=== PATIENT | female | born 1975 | race Hispanic/Latino ===

== ENCOUNTER 2018-01-23 16:04 | Emergency (ER) | payer OTHER ==
--- OUTSIDE RECORDS SUMMARY | 2018-01-23 16:06 | XMS REPORT | Clinical Summary ---
:1975 Author Organization [facility] Address [address] [place] [address] Care Team Providers Name Role Phone Asked, No Pcp Primary Care Provider Unavailable Allergies Active Allergy Reactions Severity Noted Date Comments Doxycycline GI Intolerance 09/03/2016 Current Medications No known medications Active Problems Not on file Social History Tobacco Use Types Packs/Day Years Used Date Never Smoker Alcohol Use Drinks/Week oz/Week Comments No Sex Assigned at Date Recorded Not on file Last Filed Vital Signs Not on file Plan of Treatment Not on file Results Not on fileafter 01/22/2017 Insurance Payer Benefit Plan / Group Subscriber ID Type Phone Address [employer] [facility] [employer] Home[address] [phone] [phone]
--- OUTSIDE RECORDS SUMMARY | 2018-01-23 16:07 | XMS REPORT | Continuity of Care Document ---
:1975 Author Organization Interface Problems Problem Status Onset Classification Date Comments Source Date Reported TRIGEMINAL Active [facility] NEURALGIA [address] [place] [address] G50.0 - Active OPI TRIGEMINAL [address] [place] NEURALGIA Obesity Active Problem 01/02/2018 [facility] Trigeminal Active Problem 01/02/2018 [facility] neuralgia Neuro,[facility] Medications Medication Details Route Status Patient Ordering Order Source Instructions Provider Date Promethazine
12.5 mg=1 Active 11/27[facility] Hydrochloride tab, PO, Q4H, 2017 Medical 12.5 MG Oral PRN Nausea & Center Tablet Vomiting, X 10 [Phenergan] day, # 60 tab, 0 Refill(s) Acetaminophen 325
1-2 tab, Active 11/27[facility] MG / Hydrocodone PO, Q4-6H, PRN 2017 Medical Bitartrate 10 MG Pain, X 10 day, Center Oral Tablet # 60 tab, 0 [[place] 10/325] Refill(s), given to patient Cyclobenzaprine
10 mg, PO, Active 11/27[facility] hydrochloride 10 TID, PRN Muscle 2017 Medical MG Oral Tablet Spasm, X 10 day, Center [Flexeril] # 30 tab, 0 Refill(s) Docusate Sodium
100 mg, PO, Active 11/27[facility] 100 MG Oral BID, PRN 2017 Medical Capsule Constipation, # Center 20 cap, 0 Refill(s) Reglan
10 mg, 2 No Longer [facility] mL, Route: IVP, Active 2016 Medical Drug form: INJ, Center Q6H, Dosing Weight 84.091, kg, PRN Nausea & Vomiting, Start date: 11/26/16 10:11:00 CDT, Duration: 30 day, Stop date: 12/26/16 10:10:00 CDT
Notes: (Same as: Reglan) pantoprazole
40 mg, 1 No Longer [facility] tab, Route: PO, Active 2017 Medical Drug form: Center ECTAB, Daily, Dosing Weight 84.091, kg, Start date: 11/26/16 9:00:00 CDT, Duration: 30 day, Stop date: 12/25/16 9:00:00 CDT
Notes: Tablet should not be chewed or crushed. (Same as: Protonix) Dilaudid
1 mg, 0.5 Inactive [facility] mL, Route: IVP, 2016 Medical Drug form: INJ, Center ONCE, Dosing Weight 84.091, kg, Priority: STAT, Start date: 11/26/16 6:28:00 CDT, Stop date: 11/26/16 6:28:00 CDT
Notes: Same as: Dilaudid Saline Flush 0.9%
10 ml, No Longer [facility] Route: IVP, Drug Active 2016 Medical Form: INJ, Center Dosing Weight 84.091, kg, Q12H, Start date: 11/25/16 21:00:00 CDT, Duration: 30 day, Stop date: 12/25/16 9:00:00 CDT
Notes: (Same as: BD Posiflush) Docusate Sodium
100 mg, 1 No Longer [facility] 100 MG Oral cap, Route: PO, Active 2016 Medical Capsule Drug form: CAP, Center Q12H, Dosing Weight 84.091, kg, Start date: 11/25/16 21:00:00 CDT, Duration: 30 day, Stop date: 12/25/16 9:00:00 CDT
Notes: (Same as: Colace) (Do Not Crush) sennosides, ALF
8.6 mg, 1 No Longer [facility] tab, Route: PO, Active 2017 Medical Drug Form: TAB, Center Dosing Weight 84.091, kg, Q12H, Start date: 11/25/16 21:00:00 CDT, Duration: 30 day, Stop date: 12/25/16 9:00:00 CDT
Notes: (Same as: Regis) Senna 8.6 mg oral
1 tab, Inactive [place] tablet Route: PO, Drug 2016 Medical Form: TAB, Center Dosing Weight 84.091, kg, Q12H, Start date: 11/25/16 21:00:00 CDT, Duration: 30 day, Stop date: 12/25/16 9:00:00 CDT Docusate
100 mg, Inactive [facility] Route: PO, Drug 2016 Medical form: CAP, Q12H, Center Dosing Weight 84.091, kg, Start date: 11/25/16 21:00:00 CDT, Duration: 30 day, Stop date: 12/25/16 9:00:00 CDT Cefazolin
2 gm, No Longer [facility] Route: IVPB, Active 2016 Medical ABXQ8H, Dosing Center Weight 84.091, kg, Start date: 11/25/16 16:00:00 CDT, Duration: 1 day, Stop date: 11/26/16 8:00:00 CDT
Notes: (Same As: Gregorio Pricefzol) MEDICATION WASTE Product Size: 1000 mg Product Wasted: ___ mg Vancomycin
1,000 mg, Inactive [facility] Route: IVPB, 2016 Medical Drug form: INJ, Center Q8H, Dosing Weight 84.091, kg, Start date: 11/25/16 16:00:00 CDT, Duration: 24 hr, Stop date: 11/26/16 8:00:00 CDT
Notes: TIME CRITICAL MEDICATION (Same As: Vancocin) Infusion rate < 1000 mg: infuse over 1 hour 1001 - 1500 mg: infuse over 1.5 hours 1501 - 2000 mg: infuse over 2 hours > 2001 mg: infuse over 2.5 hours MEDICATION WASTE Product Size: 1000 mg Product Wasted: ___ mg Promethazine
12.5 mg, No Longer [facility] 0.5 mL, Route: Active 2016 Medical IVPB, Drug form: Center INJ, Q6H, Dosing Weight 84.091, kg, PRN Nausea & Vomiting, Start date: 11/25/16 15:40:00 CDT, Duration: 30 day, Stop date: 12/25/16 15:39:00 CDT
Notes : Do not give IV push. (Same as: Phenergan) Morphine
2 mg, 1 mL, No Longer [place] Route: IVP, Drug Active 2016 Medical form: INJ, Q4H, Center Dosing Weight 84.091, kg, PRN Pain Score 7-10, Start date: 11/25/16 15:40:00 CDT, Duration: 30 day, Stop date: 12/25/16 15:39:00 CDT
Notes: (Same as:MORPhine Sulfate) Acetaminophen 325
1 tab, No Longer [place] MG / Hydrocodone Route: PO, Drug Active 2016 Medical Bitartrate 10 MG Form: TAB, Center Oral Tablet Dosing Weight 84.091, kg, Q4H, PRN Pain Score 4-6, Start date: 11/25/16 15:40:00 CDT, Duration: 30 day, Stop date: 12/25/16 15:39:00 CDT
Notes: Do not exceed 4gm/day of acetaminophen. (Same as: [place] 325/10) Acetaminophen 325
1 tab, No Longer [facility] MG / Hydrocodone Route: PO, Drug Active 2016 Medical Bitartrate 5 MG Form: TAB, Center Oral Tablet Dosing Weight 84.091, kg, Q4H, PRN Pain Score 1-3, Start date: 11/25/16 15:40:00 CDT, Duration: 30 day, Stop date: 12/25/16 15:39:00 CDT
Notes: (Same as: [place] 325/5) Do not exceed 4gm/day of acetaminophen. Carbamazepine
800 mg, 4 No Longer [place] cap, Route: PO, Active 2016 Medical Drug form: Center ERCAP, BID, Dosing Weight 84.091, kg, Priority: NOW, Start date: 11/25/16 15:36:00 CDT, Stop date: 12/25/16 9:00:00 CDT
Notes: Do not open, chew or crush. (Same As: Carbatrol) Dexamethasone
4 mg, 1 mL, Inactive [facility] Route: IVP, Drug 2016 Medical form: INJ, Q6H, Center Dosing Weight 84.091, kg, Start date: 11/25/16 12:00:00 CDT, Duration: 1 day, Stop date: 11/26/16 6:00:00 CDT
Notes: Concentration: 4mg/ml cefepime
1 gm, Inactive [facility] Route: IVPB, 2016 Medical Drug form: INJ, Center ABXQ8H, Dosing Weight 84.091, kg, (CrCl >/=50 ml/min), Start date: 11/25/16 12:00:00 CDT, Duration: 1 day, Stop date: 11/26/16 4:00:00 CDT
Notes: (Same As: Maxipime) MEDICATION WASTE Product Size: 1000 mg Product Wasted: ___ mg Flexeril
10 mg, 1 No Longer [facility] tab, Route: PO, Active 2017 Medical Drug form: TAB, Center TID, Dosing Weight 84.091, kg, PRN Spasm, Start date: 11/25/16 11:51:00 CDT, Duration: 30 day, Stop date: 12/25/16 11:50:00 CDT
Notes: (Same As: Flexeril) Acetaminophen 325
1 tab, Inactive [facility] MG / Hydrocodone Route: PO, Drug 2017 Medical Bitartrate 10 MG Form: TAB, Center Oral Tablet Dosing Weight [[place] 10/325] 84.091, kg, Q4H, PRN Pain Score 1-3, Start date: 11/25/16 11:50:00 CDT, Duration: 30 day, Stop date: 12/25/16 11:49:00 CDT
Notes: Do not exceed 4gm/day of acetaminophen. (Same as: [place] 325/10) neostigmine
Route: IV, Inactive [facility] (ANES) Drug form: INJ, 2017 Medical ONCE, Stop date: Center 11/25/16 11:48:00 CDT glycopyrrolate
Route: IV, Inactive [facility] (ANES) Drug form: INJ, 2016 Medical ONCE, Stop date: Center 11/25/16 11:48:00 CDT Insulin regular
6 unit, No Longer [facility] 0.06 mL, Route: Active 2016 Medical SUB-Q, Drug Center form: SOLN, Sliding Scale, Dosing Weight 84.091, kg, PRN Blood Glucose Results, Start date: 11/25/16 11:48:00 CDT, Duration: 30 day, Stop date: 12/25/16 11:47:00 CDT
Notes: (Same as: Humulin R) Roll in palms of hands gently; Do not shake vigorously. "single patient use only" (Restricted to patients requiring a dose > 60 units) WASTE: F/P - Black; E - [employer] Trash Bin Stable for 28 days at room temperature Expires in days from Da te Saline Flush 0.9%
10 ml, No Longer [facility] Route: IVP, Drug Active 2016 Medical Form: INJ, Center Dosing Weight 84.091, kg, PRN, PRN Line Flush, Start date: 11/25/16 11:48:00 CDT, Duration: 30 day, Stop date: 12/25/16 11:47:00 CDT
Notes: (Same as: BD Posiflush) Morphine
2 mg, 1 mL, Inactive [facility] Route: IVP, Drug 2016 Medical form: INJ, Q1H, Center Dosing Weight 84.091, kg, PRN Pain Score 7-10, Start date: 11/25/16 11:48:00 CDT, Duration: 30 day, Stop date: 12/25/16 11:47:00 CDT
Notes: (Same as:MORPhine Sulfate) Ondansetron
4 mg, 2 mL, No Longer [facility] Route: IVP, Drug Active 2016 Medical form: INJ, Q8H, Center Dosing Weight 84.091, kg, PRN Nausea & Vomiting, Start date: 11/25/16 11:48:00 CDT, Duration: 30 day, Stop date: 12/25/16 11:47:00 CDT
Notes : (Same as: Zofran) MEDICATION WASTE Product Size: 4 mg Product Wasted: ___ mg Sodium Chloride
1,000 mL, No Longer [facility] 0.154 MEQ/ML Rate: 100 ml/hr, Active 2016 Medical Injectable Infuse over: 10 Center Solution hr, Route: IV, Dosing Weight 84.091 kg, Total Volume: 1,000, Start date: 11/25/16 11:48:00 CDT, Stop date: 12/25/16 11:47:00 CDT ondansetron
Route: IV, Inactive 11/[facility] (ANES) Drug form: INJ, 2016 Medical ONCE, Stop date: [place] 11/25/16 11:33:00 CDT acetaminophen
Route: IV, Inactive [facility] (ANES) Drug form: INJ, 2016 Medical ONCE, Stop date: [place] 11/25/16 10:48:00 CDT SUFentanil (ANES)
Route: IV, Inactive [facility] Drug form: INJ, 2016 Medical ONCE, Stop date: [place] 11/25/16 10:38:00 CDT Naloxone
0.4 mg, 1 Inactive [facility] mL, Route: IVP, 2016 Medical Drug form: INJ, Center Q2MIN, Dosing Weight 84.091, kg, PRN Narcotic Reversal, Start date: 11/25/16 10:21:00 CDT, Duration: 8 doses or times, Stop date: 11/26/16 0:00:00 CDT
Notes: Same as Narcan Hydromorphone
0.5 mg, Inactive [facility] 0.25 mL, Route: 2017 Medical IVP, Drug form: [place] INJ, Q5Min, Dosing Weight 84.091, kg, PRN Pain Score 7-10, Start date: 11/25/16 10:21:00 CDT, Duration: 4 doses or times, Stop date: 11/26/16 0:00:00 CDT
Notes: Same as: Dilaudid Flumazenil
0.2 mg, 2 Inactive [facility] mL, Route: IVP, 2016 Medical Drug form: INJ, Center PRN, Dosing Weight 84.091, kg, PRN Benzodiazepine Reversal, Initial dose, Start date: 11/25/16 10:21:00 CDT, Duration: 30 day, Stop date: 12/25/16 10:20:00 CDT
Notes: (Same as: Romazicon) Ondansetron
4 mg, 2 mL, Inactive [facility] Route: IVP, Drug 2016 Medical form: INJ, ONCE, Center Dosing Weight 84.091, kg, PRN Nausea & Vomiting, Start date: 11/25/16 10:21:00 CDT
Notes: (Same as: Annabel) MEDICATION WASTE Product Size: 4 mg Product Wasted: ___ mg Oxycodone
5 mg, 1 Inactive [facility] tab, Route: PO, 2016 Medical Drug form: TAB, Center Q4H, Dosing Weight 84.091, kg, PRN Pain Score 4-6, Start date: 11/25/16 10:21:00 CDT, Duration: 30 day, Stop date: 12/25/16 10:20:00 CDT
Notes: (Same as: Roxicodone) Labetalol
10 mg, 2 Inactive [facility] mL, Route: IVP, 2016 Medical Drug form: INJ, Center Q5Min, Dosing Weight 84.091, kg, PRN Elevated BP, Start date: 11/25/16 10:21:00 CDT, Duration: 5 doses or times, Stop date: 11/26/16 0:00:00 CDT dexamethasone
Route: IV, Inactive [facility] (ANES) Drug form: INJ, 2017 Medical ONCE, Stop date: Center 11/25/16 8:58:00 CDT rocuronium (ANES)
Route: IV, Inactive [facility] Drug form: INJ, 2016 Medical ONCE, Stop date: [place] 11/25/16 8:58:00 CDT fentaNYL (ANES)
Route: IV, Inactive [facility] Drug form: INJ, 2016 Medical ONCE, Stop date: [place] 11/25/16 8:58:00 CDT ceFAZolin (ANES)
Route: IV, Inactive [facility] Drug form: INJ, 2016 Medical ONCE, Stop date: [place] 11/25/16 8:58:00 CDT phenylephrine
Route: IV, Inactive [facility] (ANES) Drug form: INJ, 2016 Medical ONCE, Stop date: [place] 11/25/16 8:58:00 CDT lidocaine (ANES)
Route: IV, Inactive [facility] Drug form: INJ, 2016 Medical ONCE, Stop date: [place] 11/25/16 8:58:00 CDT propofol (ANES)
Route: IV, Inactive [facility] Drug form: INJ, 2016 Medical ONCE, Stop date: [place] 11/25/16 8:58:00 CDT sodium chloride
Route: IV, Inactive [facility] 0.9% 1000 ml INJ Total Volume: 2017 Medical (ANES) 1,000, Start Center date: 11/25/16 8:18:00 CDT, Stop date: 11/25/16 9:18:00 CDT propofol (ANES)
Route: IV, Inactive [facility] (ANES) Drug form: INJ, 2016 Medical Start date: [place] 11/25/16 8:02:00 CDT, Stop date: 11/25/16 9:02:00 CDT SUFentanil (ANES)
Route: IV, Inactive [facility] (ANES) Drug form: INJ, 2016 Medical Start date: [place] 11/25/16 8:02:00 CDT, Stop date: 11/25/16 9:02:00 CDT midazolam (ANES)
Route: IV, Inactive [facility] Drug form: SOLN, 2016 Medical ONCE, Stop date: [place] 11/25/16 7:58:00 CDT LR 1000 mL INJ
Route: IV, Inactive [facility] (ANES) Total Volume: 2017 Medical 1,000, Start Center date: 11/25/16 7:21:00 CDT, Stop date: 11/25/16 8:21:00 CDT ceFAZolin
2 gm, 100 Inactive [place] mL, Route: IVPB, 2016 Medical Drug form: INJ, Center PRE OP, Start date: 11/25/16 0:00:00 CDT, Duration: 1 day, Stop date: 11/25/16 23:59:00 CDT
Notes: Same as: Ancef Allergies, Adverse Reactions, Alerts Substance Category Reaction Severity Reaction Status Date Comments Source type Reported NKDA Assertion Drug Active [facility] Immunizations Immunization Date Given Site Status Last Updated Comments Source Results Order Name Results Value Reference Date Interpretation Comments Source Range Neck soft Neck soft EXAM: CT NECK WITH CONTRAST 04/01 - [facility] tissue w tissue - [place] contrast CT contrast CT This report was dictated by a Amusement Equipment Operator/Fellow. I have personally reviewed the images as well as the Resident's interpretation and agree with the findings. 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 TECHNIQUE: Axial CT images of the neck were obtained after intravenous contrast. Reformatted images in the sagittal and coronal plane were included. IV contrast: 100 mL of Omnipaque 300.. DLP: 665 mGy-cm. FINDINGS: The nasopharynx, oropharynx and oral cavity are normal. The larynx, hypopharynx and thyroid gland are normal. The parotid glands are symmetric with no masslike enhancement. There are 2 intraparotid lym ph nodes on the right side of the clinical significance. Imaged portions of the paranasal sinuses and mastoid air cells are clear. Imaged portions of the brain and orbits are unremarkable. No cervical lymphadenopathy by imaging criteria. Osseous structures are normal. The lung apices are clear. IMPRESSION: Unremarkable parotid glands. Small right intraparotid lymph nodes of no clinical significance. CHEM PANEL eGFR 116 11/26 Result Comment: The eGFR is calculated using the CKD-EPI formula. In most young, healthy individuals the eGFR will be >90 mL/ min/1.73m2. The eGFR declines with age. An eGFR of 60-89 may be normal in [facility] mL/min/1.7 some populations, particularly the elderly, for whom the CKD-EPI formula has not been extensively validated. Use of the eGFR is not recommended in the following populations: [address] Individuals with unstable creatinine concentrations, including patients and those with serious co-morbid conditions. Patients with extremes in muscle mass or diet. The data above are obtained from the National Kidney Disease Education Program (NKDEP) which additionally recommends that when the eGFR is used in patients with extremes of body mass index for purposes of drug dosing, the eGFR should be multiplied by the estimated BMI. CHEM PANEL Glucose Lvl 89 mg/dL 70 - 99 11/[address] CHEM PANEL Chloride Lvl 109 meq/L 95 - 109 11/[address] CHEM PANEL Potassium 3.5 meq/L 3.5 - 5.1 11/26 [facility] [address] [place] [address] CHEM PANEL Sodium Lvl 142 meq/L 135 - 145 11/[address] CHEM PANEL Creatinine 0.56 mg/dL 0.50 - 11/26 [facility] Lvl 1.40 /2016 [facility] CHEM PANEL BUN 6 mg/dL 7 - 22 11/[address] CHEM PANEL Calcium Lvl 7.7 mg/dL 8.5 - 10.5 11/[address] CHEM PANEL CO2 24 meq/L 24 - 32 11/[address] CHEM PANEL AGAP 12.5 meq/L 10.0 - 11/26 [facility] 20.0 [facility] HEMATOLOGY Monocytes # 0.7 K/CMM 0.0 - 0.8 11/[address] HEMATOLOGY Lymphocytes 2.0 K/CMM 1.0 - 5.5 11/26 [facility] # /2016 [facility] HEMATOLOGY Lymphocytes 22.4 % 20.0 - 05/ [place] 40.0 /2016 [facility] HEMATOLOGY Basophils 0.2 % 0.0 - 1.0 [facility] HEMATOLOGY Monocytes 8.3 % 2.0 - 12.0 11/26 [facility] HEMATOLOGY Segs-Bands # 6.1 K/CMM 1.5 - 8.1 11/26 [facility] HEMATOLOGY Segs 69.1 % 45.0 - 11/26 [place] 75.0 /2016 [facility] HEMATOLOGY Platelet 232 K/CMM 133 - 450 11/26 [facility] HEMATOLOGY MPV 8.2 fL 7.4 - 10.4 11/26 [facility] HEMATOLOGY MCHC 33.6 g/dL 32.0 - 11/26 [place] 36.0 [facility] HEMATOLOGY RDW 13.4 % 11.5 - 05 14.5 [facility] HEMATOLOGY Hct 34.7 % 36.0 - 11/26 [place] 48.0 [facility] HEMATOLOGY MCV 93.2 fL 80.0 - 11/26 [facility] 98.0 [facility] HEMATOLOGY MCH 31.3 pg 27.0 - 11/26 [place] 31.0 [facility] HEMATOLOGY RBC 3.73 M/CMM 4.20 - 11/26 [place] 5.40 /2016 [facility] HEMATOLOGY Hgb 11.7 g/dL 12.0 - 05 [place] 16.0 [facility] HEMATOLOGY WBC 8.8 K/CMM 3.7 - 10.4 11/26 [facility] HEMATOLOGY PTT 27.0 s 22.9 - 11/26 [place] 35.8 /2016 [facility] HEMATOLOGY PT 14.4 s 12.0 - 11/26 [place] 14.7 [facility] HEMATOLOGY INR 1.10 0.85 - 11/26 [place] 1.17 [facility] ELECTROLYTE AGAP 11.3 meq/L 10.0 - 11/24 [facility] S 20.0 [facility] ELECTROLYTE eGFR 114 11/24 Result Comment: The eGFR is calculated using the CKD-EPI formula. In most young, healthy individuals the eGFR will be > 90 mL/min/1.73m2. The eGFR declines with age. An eGFR of 60-89 may be normal in [facility] mL/min/1.7 some populations, particularly the elderly, for whom the CKD-EPI formula has not been extensively validated. Use of the eGFR is not recommended in the following populations: [address] Individuals with unstable creatinine concentrations, including patients and those with serious co-morbid conditions. Patients with extremes in muscle mass or diet. The data above are obtained from the National Kidney Disease Education Program (NKDEP) which additionally recommends that when the eGFR is used in patients with extremes of body mass index for purposes of drug dosing, the eGFR should be multiplied by the estimated BMI. ELECTROLYTE Potassium 4.3 meq/L 3.5 - 5.1 11/24 [facility] ELECTROLYTE Chloride Lvl 105 meq/L 95 - 109 11/[address] ELECTROLYTE CO2 31 meq/L 24 - 32 11/[address] ELECTROLYTE Calcium Lvl 8.4 mg/dL 8.5 - 10.5 11/[address] ELECTROLYTE Creatinine 0.59 mg/dL 0.50 - 11/24 [facility] Lvl 1.40 [facility] ELECTROLYTE Sodium Lvl 143 meq/L 135 - 145 11/[address] ELECTROLYTE Glucose Lvl 82 mg/dL 70 - 99 11/24 [facility] [address] [place] [address] ELECTROLYTE BUN 10 mg/dL 7 - 22 11/[address] HEMATOLOGY Segs 57.6 % 45.0 - 05 [place] 75.0 [facility] HEMATOLOGY Lymphocytes 33.6 % 20.0 - 05 [place] 40.0 [facility] HEMATOLOGY Eosinophils 0.3 % 0.0 - 4.0 11/[address] HEMATOLOGY Monocytes 8.2 % 2.0 - 12.0 11/[address] [place] [address] HEMATOLOGY Segs-Bands # 3.0 K/CMM 1.5 - 8.1 11/[address] HEMATOLOGY Basophils 0.3 % 0.0 - 1.[address] HEMATOLOGY Lymphocytes 1.7 K/CMM 1.0 - 5.5 11/24 [facility] # [facility] HEMATOLOGY Monocytes # 0.4 K/CMM 0.0 - 0.8 11/[address] HEMATOLOGY INR 1.02 0.85 - 05 [place] 1.17 [facility] HEMATOLOGY PTT 29.2 s 22.9 - 05 [facility] [place] 35.8 [facility] HEMATOLOGY PT 13.6 s 12.0 - 11/24 14.7 [facility] HEMATOLOGY RDW 13.5 % 11.5 - 11/24 14.5 [facility] HEMATOLOGY Platelet 239 K/CMM 133 - 450 11/24 [facility] HEMATOLOGY MPV 8.1 fL 7.4 - 10.4 11/24 [facility] HEMATOLOGY MCV 93.9 fL 80.0 - 11/24 98.0 [facility] HEMATOLOGY MCH 31.6 pg 27.0 - 11/24 31.0 [facility] HEMATOLOGY Hct 40.9 % 36.0 - 11/24 [place] 48.0 [facility] HEMATOLOGY Hgb 13.7 g/dL 12.0 - 11/24 16.0 [facility] HEMATOLOGY RBC 4.35 M/CMM 4.20 - 11/24 5.40 [facility] HEMATOLOGY WBC 5.2 K/CMM 3.7 - 10.4 11/24 [facility] HEMATOLOGY MCHC 33.6 g/dL 32.0 - 11/24 36.0 [facility] Brain w/wo Brain w/wo EXAM: MRI BRAIN WITH AND WITHOUT CONTRAST 09/28 - [facility] contrast contrast MRI /2016 [facility] MRI DATE: 09/28/2016 4:23 PM HARNESS TIER Read by: Kris Alatorre MD Dictated Date/time: 09/28/16 22:35 Electronically Signed by: Kris Alatorre MD 09/28/16 22:51 FINAL REPORT INDICATION: G50.0 Trigeminal neuralgia. COMPARISON: None. TECHNIQUE: Multiplanar, multisequence MRI imaging of the brain was acquired with and without intravenous contrast according to the trigeminal neuralgia protocol. A total of 18 mL Omniscan was administered intravenously. FINDINGS: No acute intracranial hemorrhage, midline shift, or mass effect is identified. The ventricles and sulci are within normal limits, without evidence for hydrocephalus. No evidence for restricted diffusion is present to suggest an acute infarct. There is no abnormal gradient susceptibility artifact. A retention cyst is noted within the peripheral aspect of the right sphenoid sinus on series 1501 image 3. The major intracranial flow voids are maintained. An enhancing nodule within the superficial as pect of the right parotid gland is nonspecific, measuring approximately 8 mm on series 1601 image 10. The right trigeminal nerve appears to be decreased in caliber when compared to the left. No abnormal enhancement along the expected course of the trigeminal nerve is identified. The muscles of masticati on are symmetric. Meckel's cave is unremarkable bilaterally. The cavernous sinuses are within normal limits. No abnormal vascular displacement or compression of the trigeminal nerve is visualized. Foramen ovale is unremarkable. IMPRESSION: 1. Right trigeminal nerve appears to be decreased in caliber when compared to the left. No abnormal enhancement, masses, or vascular displacement is visualized. 2. Nonspecific enhancing nodule within the superficial right parotid gland measures approximately 8 mm. 3. No acute abnormality within the brain. SL: [id number] Vital Signs Vital Sign Value Date Comments Source Systolic (mm Hg) 100 11/27/2016 [facility] Diastolic (mm Hg) 65 11/27/2016 [facility] Respitory Rate 18 11/27/2016 [facility] Temperature Oral (F) 97.8 F 11/27/2016 [facility] Heart Rate 74 11/27/2016 [facility] Heart Rate 82 11/27/2016 [facility] Systolic (mm Hg) 110 11/27/2016 [facility] Diastolic (mm Hg) 73 11/27/2016 [facility] Heart Rate 69 11/27/2016 [facility] Systolic (mm Hg) 96 11/27/2016 [facility] Diastolic (mm Hg) 59 11/27/2016 [facility] Respitory Rate 16 11/27/2016 [facility] Temperature Oral (F) 97.6 F 11/27/2016 [facility] Respitory Rate 16 11/27/2016 [facility] Temperature Oral (F) 99.0 F 11/27/2016 [facility] BMI Calculated 33.91 11/25/2016 [facility] Weight 84.091 11/25/2016 [facility] Height 157.48 cm 11/25/2016 [facility] Systolic (mm Hg) 102 11/24/2016 [facility] Diastolic (mm Hg) 67 11/24/2016 [facility] Weight 84.091 11/24/2016 [facility] [place] Height 157.48 cm 11/24/2016 [facility] [place] BMI Calculated 33.91 11/24/2016 [facility] Encounters Location Location Encounter Encounter Reason Attending ADM DC Status Source Details Type Number For Provider Date Date Visit [facility] Outpt Diag [id number] Drik 09/28 09/29 [facility] [id number] SHAYAN ALATORRE 10/27 [facility] Outpatient [id number] SHAYAN ALATORRE 11/24 [facility] [place] Outpatient [id number] SHAYAN ALATORRE 11/25 [facility] Inpatient [id number] Shayan Alatorre 11/25 11/27 [facility] /2016 [facility] Outpatient [id number] SHAYAN ALATORRE 12/08 [facility] [place] Outpatient [id number] SHAYAN ALATORRE 02/09 [facility] [place] [facility] Outpt Diag [id number] Martín 04/01 04/02 [facility] [place] [facility] Phone [id number] 12/29 12/31 [facility] /2017 [facility] [id number] MARGARITA 02/18 [facility] [place] Procedures Procedure Code Date Perfomer Comments Source Caesarean section [id number] [facility] Cholecystectomy [id number] [facility] Caesarean section [id number] [facility] [place] Cholecystectomy [id number] [facility] Caesarean section [id number] [facility] Cholecystectomy [id number] [facility]
--- OUTSIDE RECORDS SUMMARY | 2018-01-23 16:07 | XMS REPORT | Summary of Care ---
:1975 Author Organization [facility] Neurosurgery [facility] Address [address] [place] [address], [address] [place] [address]- Encounter [facility] Encntr_alias(FIN) [id number] Date(s): 12/29/17 - 12/30/17 [facility] Neurosurgery [facility] [address] [facility] [address], [address] [place] [address] [phone] Vital Signs No data available for this section Problem List Condition Effective Dates Status Health Status Informant Obesity(Confirmed) Active Obesity(Confirmed) Active Trigeminal neuralgia(Confirmed) Active Allergies, Adverse Reactions, Alerts Substance Reaction Severity Status NKDA Active Medications No data available for this section Results No data available for this section Immunizations No data available for this section Procedures Procedure Date Related Diagnosis Body Site Status Caesarean section Completed Cholecystectomy Completed Social History Social History Type Response Alcohol Never Smoking Status Never smoker; Previous treatment: None; Ready to change: No; Concerns about tobacco use in household: No; Exposure to Tobacco Smoke None; Cigarette Smoking Last 365 Days No; Reg Smoking Cessation Counseling No entered on: 02/09/17 Assessment and Plan No data available for this section
--- OUTSIDE RECORDS SUMMARY | 2018-01-23 16:07 | XMS REPORT | Summary of Care ---
:1975 Author Organization [facility] [place] Address [address] [place], [place] [address]- Encounter HQ Yashntr_barbara(FIN) [id number] Date(s): 04/01/17 - 04/01/17 [facility] [place] [address] [place] [address]- [phone] Discharge Disposition: Home or Self Care Attending Physician: Martín Miller MD Vital Signs Most recent to oldest [Reference Range]: 1 Height 157.48 cm (11/24/16 2:57 PM) Blood Pressure [90-140/60-90 mmHg] 102/67 mmHg (11/24/16 2:57 PM) Weight 84.091 kg (11/24/16 2:57 PM) Body Mass Index 33.91 m2 (11/24/16 2:57 PM) Problem List Condition Effective Dates Status Health Status Informant Obesity(Confirmed) Active Obesity(Confirmed) Active Trigeminal neuralgia(Confirmed) Active Allergies, Adverse Reactions, Alerts Substance Reaction Severity Status NKDA Active Medications No data available for this section Results No data available for this section Immunizations No data available for this section Procedures Procedure Date Related Diagnosis Body Site Caesarean section Cholecystectomy Social History Social History Type Response Alcohol Never Smoking Status Never smoker; Previous treatment: None; Ready to change: No; Concerns about tobacco use in household: No; Exposure to Tobacco Smoke None; Cigarette Smoking Last 365 Days No; Reg Smoking Cessation Counseling No Assessment and Plan No data available for this section
--- OUTSIDE RECORDS SUMMARY | 2018-01-23 16:07 | XMS REPORT | Summary of Care ---
:1975 Author Organization [facility] Outpatient [facility] [place] Address [address] [place], [place] [address]- Encounter HQ Encntr_alias(FIN) [id number] Date(s): 09/28/16 - 09/28/16 [facility] Outpatient Imaging [address], [facility] [address] [place] [address]- [phone] Discharge Disposition: Home or Self Care Attending Physician: Dirk Becerril MD Vital Signs No data available for this section Problem List No data available for this section Allergies, Adverse Reactions, Alerts No data available for this section Medications No data available for this section Results No data available for this section Immunizations No data available for this section Procedures No data available for this section Social History No data available for this section Assessment and Plan No data available for this section
--- OUTSIDE RECORDS SUMMARY | 2018-01-23 16:07 | XMS REPORT | Summary of Care ---
:1975 Author Organization [facility] Address [address] [place] [id number]- Encounter HQ Encntr_barbara(FIN) [id number] Date(s): 11/25/16 - 11/27/[address] Professional Services provided by [facility] [place] [address]- Discharge Disposition: Home or Self Care Attending Physician: Matty lAatorre MD Admitting Physician: Matty Alatorre MD Referring Physician: Matty Alatorre MD Vital Signs Most recent to oldest [Reference 1 2 3 Range]: Height 157.48 cm (11/25/16 5:50 AM) Temperature Oral [96.4-99.1 DegF] 97.8 DegF 97.6 DegF 99.0 DegF (11/27/16 7:29 AM) (11/27/16 4:35 AM) (11/26/16 11:35 PM) Blood Pressure [90-140/60-90 100/65 mmHg 110/73 mmHg 96/59 mmHg mmHg] (11/27/16 7:29 AM) (11/27/16 6:17 AM) (11/27/16 4:35 AM) Respiratory Rate [14-20 BRMIN] 18 BRMIN 16 BRMIN 16 BRMIN (11/27/16 7:29 AM) (11/27/16 4:35 AM) (11/26/16 11:35 PM) Peripheral Pulse Rate [60-100 74 bpm 82 bpm 69 bpm bpm] (11/27/16 7:29 AM) (11/27/16 6:17 AM) (11/27/16 4:35 AM) Weight 84.091 kg (11/25/16 5:50 AM) Body Mass Index 33.91 m2 (11/25/16 5:50 AM) Problem List Condition Effective Dates Status Health Status Informant Obesity(Confirmed) Active Obesity(Confirmed) Active Trigeminal neuralgia(Confirmed) Active Allergies, Adverse Reactions, Alerts Substance Reaction Severity Status NKDA Active Medications acetaminophen (ANES) Route: IV, Drug form: INJ, ONCE, Stop date: 11/25/16 10:48:00 CDT Start Date: 11/25/16 Stop Date: 11/25/16 Status: Completedacetaminophen-hydrocodone 325 mg-10 mg oral tablet 1 tab, Route: PO, Drug Form: TAB, Dosing Weight 84.091, kg, Q4H, PRN Pain Score 4-6, Start date: 11/25/16 15:40:00 CDT, Duration: 30 day, Stop date: 12/25/16 15 :39:00 CDT Notes: Do not exceed 4gm/day of acetaminophen. (Same as: [place] 325/10) Start Date: 11/25/16 Stop Date: 11/27/16 Status: Discontinuedacetaminophen-hydrocodone 325 mg-10 mg oral tablet 2 tab, Route: PO, Drug Form: TAB, Dosing Weight 84.091, kg, Q4H, PRN Pain Score 7-10, Start date: 11/25/16 15:40:00 CDT, Duration: 30 day, Stop date: 12/25/16 15:39:00 CDT Notes: Do not exceed 4gm/day of acetaminophen. (Same as: [place] 325/10) Start Date: 11/25/16 Stop Date: 11/27/16 Status: Discontinuedacetaminophen-hydrocodone 325 mg-5 mg oral tablet 1 tab, Route: PO, Drug Form: TAB, Dosing Weight 84.091, kg, Q4H, PRN Pain Score 1-3, Start date: 11/25/16 15:40:00 CDT, Duration: 30 day, Stop date: 12/25/16 15 :39:00 CDT Notes: (Same as: [place] 325/5) Do not exceed 4gm/day of acetaminophen. Start Date: 11/25/16 Stop Date: 11/27/16 Status: DiscontinuedANES flumazenil 0.2 mg, 2 mL, Route: IVP, Drug form: INJ, PRN, Dosing Weight 84.091, kg, PRN Benzodiazepine Reversal, Initial dose, Start date: 11/25/16 10:21:00 CDT, Duration: 30 day, Stop date: 12/25/16 10:20:00 CDT Notes: (Same as: Romazicon) Start Date: 11/25/16 Stop Date: 11/25/16 Status: DiscontinuedANES HYDROmorphone 0.5 mg, 0.25 mL, Route: IVP, Drug form: INJ, Q5Min, Dosing Weight 84.091, kg, PRN Pain Score 7-10, Start date: 11/25/16 10:21:00 CDT, Duration: 4 doses or times, Stop date: 11/26/16 0:00:00 CDT Notes: Same as: Dilaudid Start Date: 11/25/16 Stop Date: 11/25/16 Status: DiscontinuedANES labetalol 10 mg, 2 mL, Route: IVP, Drug form: INJ, Q5Min, Dosing Weight 84.091, kg, PRN Elevated BP, Start date: 11/25/16 10:21:00 CDT, Duration: 5 doses or times, Stop date: 11/26/16 0:00:00 CDT Start Date: 11/25/16 Stop Date: 11/25/16 Status: DiscontinuedANES naloxone 0.4 mg, 1 mL, Route: IVP, Drug form: INJ, Q2MIN, Dosing Weight 84.091, kg, PRN Narcotic Reversal, Start date: 11/25/16 10:21:00 CDT, Duration: 8 doses or times , Stop date: 11/26/16 0:00:00 CDT Notes: Same as Narcan Start Date: 11/25/16 Stop Date: 11/25/16 Status: DiscontinuedANES ondansetron 4 mg, 2 mL, Route: IVP, Drug form: INJ, ONCE, Dosing Weight 84.091, kg, PRN Nausea & Vomiting, Start date: 11/25/16 10:21:00 CDT Notes: (Same as: Annabel) MEDICATION WASTE Product Size: 4 mgProduct Wasted: ___ mg Start Date: 11/25/16 Stop Date: 11/25/16 Status: CompletedANES oxyCODONE 5 mg, 1 tab, Route: PO, Drug form: TAB, Q4H, Dosing Weight 84.091, kg, PRN Pain Score 4-6, Start date: 11/25/16 10:21:00 CDT, Duration: 30 day, Stop date: 12/25 10:20:00 CDT Notes: (Same as: Roxicodone) Start Date: 11/25/16 Stop Date: 11/25/16 Status: DiscontinuedcarBAMazepine extended release 800 mg, 4 cap, Route: PO, Drug form: ERCAP, BID, Dosing Weight 84.091, kg, Priority: NOW, Start date: 11/25/16 15:36:00 CDT, Stop date: 12/25/16 9:00:00 CDT Notes: Do not open, chew or crush. (Same As: Carbatrol) Start Date: 11/25/16 Stop Date: 11/27/16 Status: DiscontinuedceFAZolin 2 gm, 100 mL, Route: IVPB, Drug form: INJ, PRE OP, Start date: 11/25/16 0:00:00 CDT, Duration: 1 day, Stop date: 11/25/16 23:59:00 CDT Notes: Same as: Ancef Start Date: 11/25/16 Stop Date: 11/25/16 Status: CompletedceFAZolin (ANES) Route: IV, Drug form: INJ, ONCE, Stop date: 11/25/16 8:58:00 CDT Start Date: 11/25/16 Stop Date: 11/25/16 Status: CompletedceFAZolin + sodium chloride 0.9% INJ 100 mL 2 gm, Route: IVPB, ABXQ8H, Dosing Weight 84.091, kg, Start date: 11/25/16 16:00: 00 CDT, Duration: 1 day, Stop date: 11/26/16 8:00:00 CDT Notes: (Same As: Jose Enrique Price) MEDICATION WASTE Product Size: 1000 mgProduct Wasted: ___ mg Start Date: 11/25/16 Stop Date: 11/26/16 Status: Completedcefepime 1 gm, Route: IVPB, Drug form: INJ, ABXQ8H, Dosing Weight 84.091, kg, (CrCl >/= 50 ml/min), Start date: 11/25/16 12:00:00 CDT, Duration: 1 day, Stop date: 11/26 4:00:00 CDT Notes: (Same As: Aguilarime) MEDICATION WASTE Product Size: 1000 mgProduct Wasted: ___ mg Start Date: 11/25/16 Stop Date: 11/25/16 Status: Discontinueddexamethasone 4 mg, 1 mL, Route: IVP, Drug form: INJ, Q6H, Dosing Weight 84.091, kg, Start date: 11/25/16 12:00:00CDT, Duration: 1 day, Stop date: 11/26/16 6:00:00 CDT Notes: Concentration: 4mg/ml Start Date: 11/25/16 Stop Date: 11/25/16 Status: Discontinueddexamethasone (ANES) Route: IV, Drug form: INJ, ONCE, Stop date: 11/25/16 8:58:00 CDT Start Date: 11/25/16 Stop Date: 11/25/16 Status: CompletedDilaudid 1 mg, 0.5 mL, Route: IVP, Drug form: INJ, ONCE, Dosing Weight 84.091, kg, Priority: STAT, Start date: 11/26/16 6:28:00 CDT, Stop date: 11/26/16 6:28:00 CDT Notes: Same as: Dilaudid Start Date: 11/26/16 Stop Date: 11/26/16 Status: Completeddocusate 100 mg, Route: PO, Drug form: CAP, Q12H, Dosing Weight 84.091, kg, Start date: 11/25/16 21:00:00 CDT, Duration: 30 day, Stop date: 12/25/16 9:00:00 CDT Start Date: 11/25/16 Stop Date: 11/25/16 Status: Deleteddocusate sodium 100 mg oral capsule 100 mg, 1 cap, Route: PO, Drug form: CAP, Q12H, Dosing Weight 84.091, kg, Start date: 11/25/16 21:00:00 CDT, Duration: 30 day, Stop date: 12/25/16 9:00:00 CDT Notes: (Same as: Colace) (Do Not Crush) Start Date: 11/25/16 Stop Date: 11/27/16 Status: Discontinueddocusate sodium 100 mg oral capsule 100 mg, PO, BID, PRN Constipation, # 20 cap, 0 Refill(s) Start Date: 11/27/16 Status: OrderedfentaNYL (ANES) Route: IV, Drug form: INJ, ONCE, Stop date: 11/25/16 8:58:00 CDT Start Date: 11/25/16 Stop Date: 11/25/16 Status: CompletedFlexeril 10 mg, 1 tab, Route: PO, Drug form: TAB, TID, Dosing Weight 84.091, kg, PRN Spasm, Start date: 11/25/16 11:51:00 CDT, Duration: 30 day, Stop date: 12/25/16 11:50:00 CDT Notes: (Same As: Flexeril) Start Date: 11/25/16 Stop Date: 11/27/16 Status: DiscontinuedFlexeril 10 mg oral tablet 10 mg, PO, TID, PRN Muscle Spasm, X 10 day, # 30 tab, 0 Refill(s) Start Date: 11/27/16 Stop Date: 12/07/16 Status: Orderedglycopyrrolate (ANES) Route: IV, Drug form: INJ, ONCE, Stop date: 11/25/16 11:48:00 CDT Start Date: 11/25/16 Stop Date: 11/25/16 Status: CompletedInsulin regular 6 unit, 0.06 mL, Route: SUB-Q, Drug form: SOLN, Sliding Scale, Dosing Weight 84.091, kg, PRN Blood Glucose Results, Start date: 11/25/16 11:48:00 CDT, Duration: 30 day, Stop date: 12/25/16 11:47:00 CDT Notes: (Same as: Humulin R) Roll in palms of hands gently; Do not shake vigorously. "single patientuse only"(Restricted to patients requiring a dose > 60 units)WASTE: F/P - Black; E - Municipal Trash Bin Stable for 28 days at room temperatureExpires in days from Date Start Date: 11/25/16 Stop Date: 11/27/16 Status: DiscontinuedInsulin regular 4 unit, 0.04 mL, Route: SUB-Q, Drug form: SOLN, Sliding Scale, Dosing Weight 84.091, kg, PRN Blood Glucose Results, Start date: 11/25/16 11:48:00 CDT, Duration: 30 day, Stop date: 12/25/16 11:47:00 CDT Notes: (Same as: Humulin R) Roll in palms of hands gently; Do not shake vigorously. "single patientuse only"(Restricted to patients requiring a dose > 60 units)WASTE: F/P - Black; E - Municipal Trash Bin Stable for 28 days at room temperatureExpires in days from Date Start Date: 11/25/16 Stop Date: 11/27/16 Status: DiscontinuedInsulin regular 8 unit, 0.08 mL, Route: SUB-Q, Drug form: SOLN, Sliding Scale, Dosing Weight 84.091, kg, PRN Blood Glucose Results, Start date: 11/25/16 11:48:00 CDT, Duration: 30 day, Stop date: 12/25/16 11:47:00 CDT Notes: (Same as: Humulin R) Roll in palms of hands gently; Do not shake vigorously. "single patientuse only"(Restricted to patients requiring a dose > 60 units)WASTE: F/P - Black; E - Municipal Trash Bin Stable for 28 days at room temperatureExpires in days from Date Start Date: 11/25/16 Stop Date: 11/27/16 Status: DiscontinuedInsulin regular 10 unit, 0.1 mL, Route: SUB-Q, Drug form: SOLN, Sliding Scale, Dosing Weight 84.091, kg, PRN Blood Glucose Results, Start date: 11/25/16 11:48:00 CDT, Duration: 30 day, Stop date: 12/25/16 11:47:00 CDT Notes: (Same as: Humulin R) Roll in palms of hands gently; Do not shake vigorously. "single patientuse only"(Restricted to patients requiring a dose > 60 units)WASTE: F/P - Black; E - Municipal Trash Bin Stable for 28 days at room temperatureExpires in days from Date Start Date: 11/25/16 Stop Date: 11/27/16 Status: DiscontinuedInsulin regular 2 unit, 0.02 mL, Route: SUB-Q, Drug form: SOLN, Sliding Scale, Dosing Weight 84.091, kg, PRN Blood Glucose Results, Start date: 11/25/16 11:48:00 CDT, Duration: 30 day, Stop date: 12/25/16 11:47:00 CDT Notes: (Same as: Humulin R) Roll in palms of hands gently; Do not shake vigorously. "single patientuse only"(Restricted to patients requiring a dose > 60 units)WASTE: F/P - Black; E - Municipal Trash Bin Stable for 28 days at room temperatureExpires in days from Date Start Date: 11/25/16 Stop Date: 11/27/16 Status: Discontinuedlidocaine (ANES) Route: IV, Drug form: INJ, ONCE, Stop date: 11/25/16 8:58:00 CDT Start Date: 11/25/16 Stop Date: 11/25/16 Status: CompletedLR 1000 mL INJ (ANES) Route: IV, Total Volume: 1,000, Start date: 11/25/16 7:21:00 CDT, Stop date: 10/09 8:21:00 CDT Start Date: 11/25/16 Stop Date: 11/25/16 Status: Completedmidazolam (ANES) Route: IV, Drug form: SOLN, ONCE, Stop date: 11/25/16 7:58:00 CDT Start Date: 11/25/16 Stop Date: 11/25/16 Status: Completedmorphine Sulfate 2 mg, 1 mL, Route: IVP, Drug form: INJ, Q1H, Dosing Weight 84.091, kg, PRN Pain Score 7-10, Start date: 11/25/16 11:48:00 CDT, Duration: 30 day, Stop date: 09/11 11:47:00 CDT Notes: (Same as:MORPhine Sulfate) Start Date: 11/25/16 Stop Date: 11/25/16 Status: Discontinuedmorphine Sulfate 2 mg, 1 mL, Route: IVP, Drug form: INJ, Q4H, Dosing Weight 84.091, kg, PRN Pain Score 7-10, Start date: 11/25/16 15:40:00 CDT, Duration: 30 day, Stop date: 09/11 15:39:00 CDT Notes: (Same as:MORPhine Sulfate) Start Date: 11/25/16 Stop Date: 11/27/16 Status: Discontinuedneostigmine (ANES) Route: IV, Drug form: INJ, ONCE, Stop date: 11/25/16 11:48:00 CDT Start Date: 11/25/16 Stop Date: 11/25/16 Status: CompletedNorco 10/325 oral tablet 1 tab, Route: PO, Drug Form: TAB, Dosing Weight 84.091, kg, Q4H, PRN Pain Score 1-3, Start date: 11/25/16 11:50:00 CDT, Duration: 30 day, Stop date: 12/25/16 11 :49:00 CDT Notes: Do not exceed 4gm/day of acetaminophen. (Same as: [place] 325/10) Start Date: 11/25/16 Stop Date: 11/25/16 Status: DiscontinuedNorco 10/325 oral tablet 1-2 tab, PO, Q4-6H, PRN Pain, X 10 day, # 60 tab, 0 Refill(s), given to patient Start Date: 11/27/16 Stop Date: 12/07/16 Status: Orderedondansetron 4 mg, 2 mL, Route: IVP, Drug form: INJ, Q8H, Dosing Weight 84.091, kg, PRN Nausea & Vomiting, Start date: 11/25/16 11:48:00 CDT, Duration: 30 day, Stop date: 12/25/16 11:47:00 CDT Notes: (Same as: Annabel) MEDICATION WASTE Product Size: 4 mgProduct Wasted: ___ mg Start Date: 11/25/16 Stop Date: 11/27/16 Status: Discontinuedondansetron (ANES) Route: IV, Drug form: INJ, ONCE, Stop date: 11/25/16 11:33:00 CDT Start Date: 11/25/16 Stop Date: 11/25/16 Status: Completedpantoprazole 40 mg, 1 tab, Route: PO, Drug form: ECTAB, Daily, Dosing Weight 84.091, kg, Start date: 11/26/16 9:00:00 CDT, Duration: 30 day, Stop date: 12/25/16 9:00:00 CDT Notes: Tablet should not be chewed or crushed.(Same as: Protonix) Start Date: 11/26/16 Stop Date: 11/25/16 Status: CanceledPhenergan 12.5 mg oral tablet 12.5 mg=1 tab, PO, Q4H, PRN Nausea & Vomiting, X 10 day, # 60 tab, 0 Refill( s) Start Date: 11/27/16 Stop Date: 12/07/16 Status: Orderedphenylephrine (ANES) Route: IV, Drug form: INJ, ONCE, Stop date: 11/25/16 8:58:00 CDT Start Date: 11/25/16 Stop Date: 11/25/16 Status: Completedpromethazine 12.5 mg, 0.5 mL, Route: IVPB, Drug form: INJ, Q6H, Dosing Weight 84.091, kg, PRN Nausea & Vomiting, Start date: 11/25/16 15:40:00 CDT, Duration: 30 day, Stop date: 12/25/16 15:39:00 CDT Notes: Do not give IV push. (Same as: Phenergan) Start Date: 11/25/16 Stop Date: 11/27/16 Status: Discontinuedpropofol (ANES) Route: IV, Drug form: INJ, ONCE, Stop date: 11/25/16 8:58:00 CDT Start Date: 11/25/16 Stop Date: 11/25/16 Status: Completedpropofol (ANES) (ANES) Route: IV, Drug form: INJ, Start date: 11/25/16 8:02:00 CDT, Stop date: 9:02:00 CDT Start Date: 11/25/16 Stop Date: 11/25/16 Status: CompletedReglan 10 mg, 2 mL, Route: IVP, Drug form: INJ, Q6H, Dosing Weight 84.091, kg, PRN Nausea & Vomiting, Start date: 11/26/16 10:11:00 CDT, Duration: 30 day, Stop date: 12/26/16 10:10:00 CDT Notes: (Same as: Reglan) Start Date: 11/26/16 Stop Date: 11/27/16 Status: Discontinuedrocuronium (ANES) Route: IV, Drug form: INJ, ONCE, Stop date: 11/25/16 8:58:00 CDT Start Date: 11/25/16 Stop Date: 11/25/16 Status: CompletedSaline Flush 0.9% 10 ml, Route: IVP, Drug Form: INJ, Dosing Weight 84.091, kg, Q12H, Start date: 11/25/16 21:00:00 CDT, Duration: 30 day, Stop date: 12/25/16 9:00:00 CDT Notes: (Same as: BD Posiflush) Start Date: 11/25/16 Stop Date: 11/27/16 Status: DiscontinuedSaline Flush 0.9% 10 ml, Route: IVP, Drug Form: INJ, Dosing Weight 84.091, kg, PRN, PRN Line Flush , Start date: 11/25/16 11:48:00 CDT, Duration: 30 day, Stop date: 12/25/16 11:47 :00 CDT Notes: (Same as: BD Posiflush) Start Date: 11/25/16 Stop Date: 11/27/16 Status: Discontinuedsenna 8.6 mg oral tablet 8.6 mg, 1 tab, Route: PO, Drug Form: TAB, Dosing Weight 84.091, kg, Q12H, Start date: 11/25/16 21:00:00 CDT, Duration: 30 day, Stop date: 12/25/16 9:00:00 CDT Notes: (Same as: Senokot) Start Date: 11/25/16 Stop Date: 11/27/16 Status: DiscontinuedSenna 8.6 mg oral tablet 1 tab, Route: PO, Drug Form: TAB, Dosing Weight 84.091, kg, Q12H, Start date: 21:00:00 CDT,Duration: 30 day, Stop date: 12/25/16 9:00:00 CDT Start Date: 11/25/16 Stop Date: 11/25/16 Status: Deletedsodium chloride 0.9% 1000 ml INJ (ANES) Route: IV, Total Volume: 1,000, Start date: 11/25/16 8:18:00 CDT, Stop date: 10/09 9:18:00 CDT Start Date: 11/25/16 Stop Date: 11/25/16 Status: Completedsodium chloride 0.9% 1000 ml INJ 1,000 mL 1,000 mL, Rate: 100 ml/hr, Infuse over: 10 hr, Route: IV, Dosing Weight 84.091 kg, Total Volume: 1,000, Start date: 11/25/16 11:48:00 CDT, Stop date: 12/25/16 11:47:00 CDT Start Date: 11/25/16 Stop Date: 11/27/16 Status: DiscontinuedSUFentanil (ANES) Route: IV, Drug form: INJ, ONCE, Stop date: 11/25/16 10:38:00 CDT Start Date: 11/25/16 Stop Date: 11/25/16 Status: CompletedSUFentanil (ANES) (ANES) Route: IV, Drug form: INJ, Start date: 11/25/16 8:02:00 CDT, Stop date: 9:02:00 CDT Start Date: 11/25/16 Stop Date: 11/25/16 Status: Completedvancomycin (SCIP) 1,000 mg, Route: IVPB, Drug form: INJ, Q8H, Dosing Weight 84.091, kg, Start date : 11/25/16 16:00:00 CDT, Duration: 24 hr, Stop date: 11/26/16 8:00:00 CDT Notes: TIME CRITICAL MEDICATION(Same As: Vancocin)Infusion rate< 1000 mg: infuse over 1 [id number] - 1500 mg: infuse over 1.5 [id number] - 2000 mg: infuse over 2 hours> 2001 mg: infuse over 2.5 hours MEDICATION WASTE Product Size: 1000 mgProduct Wasted: ___ mg Start Date: 11/25/16 Stop Date: 11/25/16 Status: Canceled Results ELECTROLYTES Most recent to oldest [Reference Range]: 1 2 Sodium Lvl [135-145 mEq/L] 142 mEq/L 143 mEq/L (11/26/16 12:51 AM) (11/24/16 9:30 AM) Potassium Lvl [3.5-5.1 mEq/L] 3.5 mEq/L 4.3 mEq/L (11/26/16 12:51 AM) (11/24/16 9:30 AM) Chloride Lvl [95-109 mEq/L] 109 mEq/L 105 mEq/L (11/26/16 12:51 AM) (11/24/16 9:30 AM) CO2 [24-32 mEq/L] 24 mEq/L 31 mEq/L (11/26/16 12:51 AM) (11/24/16 9:30 AM) AGAP [10.0-20.0 mEq/L] 12.5 mEq/L 11.3 mEq/L (11/26/16 12:51 AM) (11/24/16 9:30 AM) CHEM PANEL Most recent to oldest [Reference Range]: 1 2 Creatinine Lvl [0.50-1.40 mg/dL] 0.56 mg/dL 0.59 mg/dL (11/26/16 12:51 AM) (11/24/16 9:30 AM) eGFR 116 mL/min/1.73m2 1 114 mL/min/1.73m2 2 *NA* *NA* (11/26/16 12:51 AM) (11/24/16 9:30 AM) BUN [7-22 mg/dL] 6 mg/dL 10 mg/dL *LOW* (11/24/16 9:30 AM) (11/26/16 12:51 AM) Glucose Lvl [70-99 mg/dL] 89 mg/dL 82 mg/dL (11/26/16 12:51 AM) (11/24/16 9:30 AM) Calcium Lvl [8.5-10.5 mg/dL] 7.7 mg/dL 8.4 mg/dL *LOW* *LOW* (11/26/16 12:51 AM) (11/24/16 9:30 AM) 1Result Comment: The eGFR is calculated using the CKD-EPI formula. In most young , healthy individualsthe eGFR will be >90 mL/min/1.73m2. The eGFR declines with age. An eGFR of 60-89 may be normal in some populations, particularly the elderly, for whom the CKD-EPI formula has not been extensively validated. Use of the eGFR is not recommended in the following populations: Individuals with unstable creatinine concentrations, including patients and those with serious co-morbid conditions. Patients with extremes in muscle mass or diet. The data above are obtained from the National Kidney Disease Education Program ( NKDEP) which additionally recommends that when the eGFR is used in patients with extremes of body mass index for purposesof drug dosing, the eGFR should be multiplied by the estimated BMI.2Result Comment: The eGFR is calculated using the CKD-EPI formula. In most young, healthy individualsthe eGFR will be >90 mL/ min/1.73m2. The eGFR declines with age. An eGFR of 60-89 may be normal in some populations, particularly the elderly, for whom the CKD-EPI formula has not been extensively validated. Use of the eGFR is not recommended in the following populations: Individuals with unstable creatinine concentrations, including patients and those with serious co-morbid conditions. Patients with extremes in muscle mass or diet. The data above are obtained from the National Kidney Disease Education Program ( NKDEP) which additionally recommends that when the eGFR is used in patients with extremes of body mass index for purposesof drug dosing, the eGFR should be multiplied by the estimated BMI.HEMATOLOGY Most recent to oldest [Reference Range]: 1 2 WBC [3.7-10.4 K/CMM] 8.8 K/CMM 5.2 K/CMM (11/26/16 12:51 AM) (11/24/16 9:30 AM) RBC [4.20-5.40 M/CMM] 3.73 M/CMM 4.35 M/CMM *LOW* (11/24/16 9:30 AM) (11/26/16 12:51 AM) Hgb [12.0-16.0 g/dL] 11.7 g/dL 13.7 g/dL *LOW* (11/24/16 9:30 AM) (11/26/16 12:51 AM) Hct [36.0-48.0 %] 34.7 % 40.9 % *LOW* (11/24/16 9:30 AM) (11/26/16 12:51 AM) MCV [80.0-98.0 fL] 93.2 fL 93.9 fL (11/26/16 12:51 AM) (11/24/16 9:30 AM) MCH [27.0-31.0 pg] 31.3 pg 31.6 pg *HI* *HI* (11/26/16 12:51 AM) (11/24/16 9:30 AM) MCHC [32.0-36.0 g/dL] 33.6 g/dL 33.6 g/dL (11/26/16 12:51 AM) (11/24/16 9:30 AM) RDW [11.5-14.5 %] 13.4 % 13.5 % (11/26/16 12:51 AM) (11/24/16 9:30 AM) Platelet [133-450 K/CMM] 232 K/CMM 239 K/CMM (11/26/16 12:51 AM) (11/24/16 9:30 AM) MPV [7.4-10.4 fL] 8.2 fL 8.1 fL (11/26/16 12:51 AM) (11/24/16 9:30 AM) Segs [45.0-75.0 %] 69.1 % 57.6 % (11/26/16 12:51 AM) (11/24/16 9:30 AM) Lymphocytes [20.0-40.0 %] 22.4 % 33.6 % (11/26/16 12:51 AM) (11/24/16 9:30 AM) Monocytes [2.0-12.0 %] 8.3 % 8.2 % (11/26/16 12:51 AM) (11/24/16 9:30 AM) Eosinophils [0.0-4.0 %] 0.3 % (11/24/16 9:30 AM) Basophils [0.0-1.0 %] 0.2 % 0.3 % (11/26/16 12:51 AM) (11/24/16 9:30 AM) Segs-Bands # [1.5-8.1 K/CMM] 6.1 K/CMM 3.0 K/CMM (11/26/16 12:51 AM) (11/24/16 9:30 AM) Lymphocytes # [1.0-5.5 K/CMM] 2.0 K/CMM 1.7 K/CMM (11/26/16 12:51 AM) (11/24/16 9:30 AM) Monocytes # [0.0-0.8 K/CMM] 0.7 K/CMM 0.4 K/CMM (11/26/16 12:51 AM) (11/24/16 9:30 AM) PT [12.0-14.7 seconds] 14.4 seconds 13.6 seconds (11/26/16 12:51 AM) (11/24/16 9:30 AM) INR [0.85-1.17] 1.10 1.02 (11/26/16 12:51 AM) (11/24/16 9:30 AM) PTT [22.9-35.8 seconds] 27.0 seconds 29.2 seconds (11/26/16 12:51 AM) (11/24/16 9:30 AM) Immunizations No data available for this section [...]
[2018-01-23] MEDS ORDERED: CYCLOBENZAPRINE 10 MG TAB ONE (16:48)
[2018-01-23] MEDS ORDERED: KETOROLAC 30 MG/ML INJ ONE (16:48)
[2018-01-23 17:03] LABS: Urine Blood 1+ (NEG); Urine Glucose NEGATIVE (NEG); Urine Protein 1+ (NEG); Urine Specific Gravity 1.025 (1.005-1.030)
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
== END 2018-01-23 18:09 | disposition home or self-care (01) ==
LOC: ER 16:04
DX: R07.89 Other chest pain (principal); M54.2 Cervicalgia; V49.40XA Driver injured in collision with unspecified motor vehicles in traffic accident, initial encounter
CPT/HCPCS: 71045; 72040; 81003; 81025; 96372; 99283

== ENCOUNTER 2018-04-14 11:35 | Emergency (ER) | payer OTHER ==
--- OUTSIDE RECORDS SUMMARY | 2018-04-14 11:36 | XMS REPORT | Clinical Summary ---
:1975 Author Organization [facility] Address [address] [place] [address] Care Team Providers Name Role Phone Asked, [...] Not on file Results Not on fileafter 04/13/2017 Insurance Payer Benefit Plan / Group Subscriber ID Type Phone Address [employer] [facility] [employer] Home: [id number] [phone] [place] [phone]
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
--- NOTE | 2018-04-14 12:56 | RAD REPORT ---
EXAM DESCRIPTION: RAD - Chest Pa And Lat (2 Views) - 04/14/2018 12:47 pm CLINICAL HISTORY: Fever;Pain Chest pain. COMPARISON: Chest Single View dated 01/23/2018 FINDINGS: The lungs are clear. The heart is normal in size. No displaced fractures. IMPRESSION: No acute or concerning finding suspected.
[2018-04-14 13:22] LABS: Urine Amorphous Sediment 1+ /HPF (NONE SEEN); Urine Bacteria >50 /HPF (<20); Urine Culture Reflex Order NOT NEEDED; Urine RBC >50 /HPF (NONE SEEN)
[2018-04-14 13:23] LABS: Urine Blood 1+ (NEG); Urine Glucose NEGATIVE (NEG); Urine Protein 1+ (NEG); Urine Specific Gravity 1.015 (1.005-1.030); Urine pH 6.5 (5.0-7.0)
[2018-04-14] MEDS ORDERED: PROMETHAZINE 25 MG/ML VIAL ONE (13:35)
[2018-04-14] MEDS ORDERED: CEFTRIAXONE/SWI 1gm 1 GM/10 ML SYR ONE (13:36)
[2018-04-14] MEDS ORDERED: NA CHLORIDE 0.9% 2,000 ML ONE (13:36)
[2018-04-14] MEDS ORDERED: FENTANYL CITR 100 MCG/2 ML ONE (13:36)
[2018-04-14 14:08] LABS: Absolute Lymphocytes (CBC) 0.9 K/uL (0.7-4.9); Absolute Monocytes 0.8 K/uL (0.1-1.3); Absolute Neutrophil 6.7 K/uL (1.8-8.0); Basophils % 0.4 % (0-1.3); Hematocrit 36.3 % (36.0-45.0); Lymphocytes % 10.4 % (15.3-44.8); MCH 32.3 pg (27.0-35.0); MCV 93.2 fL (80-100); MPV 7.8 fL (7.6-11.3); Monocytes % 9.7 % (3.3-12.3)
[2018-04-14 14:24] LABS: Potassium 3.5 mmol/L (3.5-5.1)
--- NOTE | 2018-04-14 15:32 | ER ---
Nurse's Notes [facility] Name: Kathia Alfaro Age: 43 yrs Sex: Female : 1975 Arrival Date: 04/14/2018 Time: 11:38 Bed 20 Private MD: Out, [facility] Diagnosis: Urinary tract infection, site not specified;Fever, unspecified Presentation: 04/14 11:53 Presenting complaint: Patient states: middle back pain, vomiting, and fever that began aa5 today. Pt denies urinary symptoms. Transition of care: patient was not received from another setting of care. Onset of symptoms was April 14, 2018. Risk Assessment: Do you want to hurt yourself or someone else? Patient reports no desire to harm self or others. Initial Sepsis Screen: Does the patient meet any 2 criteria? No. Patient's initial sepsis screen is negative. Does the patient have a suspected source of infection? No. Patient's initial sepsis screen is negative. Care prior to arrival: None. 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 - Social history:: Smoking status: Patient/guardian denies using tobacco. - Ebola Screening: : No symptoms or risks identified at this time. Screenin:55 Abuse screen: Denies threats or abuse. Denies injuries from another. Nutritional aj screening: No deficits noted. Tuberculosis screening: No symptoms or risk factors identified. Fall Risk None identified. Assessment: 13:52 General: Appears in no apparent distress. uncomfortable, Behavior is calm, cooperative, aj appropriate for age. Pain: Complains of pain in mid back area. Neuro: Level of Consciousness is awake, alert, obeys commands, Oriented to person, place, time, situation, Appropriate for age. Respiratory: Airway is patent Respiratory effort is even, unlabored, Respiratory pattern is regular, symmetrical. : Reports pain in lower back. Derm: Skin is intact, is healthy with good turgor, Skin is pink, warm \T\ dry. normal. 15:42 Reassessment: Patient appears in no apparent distress at this time. No changes from aj previously documented assessment. Patient and/or family updated on plan of care and expected duration. Pain level reassessed. Patient is alert, oriented x 3, equal unlabored respirations, skin warm/dry/pink. Patient denies pain at this time. Patient states feeling better. Patient states symptoms have improved. Vital Signs: 11:54 BP 110 / 70; Pulse 124; Resp 18 S; Temp 100.7(O); Pulse Ox 96% on R/A; Weight 83.91 kg aa5 (R); Height 5 ft. 1 in. (154.94 cm) (R); Pain 8/10; 13:52 BP 98 / 57; Pulse 95; Resp 16; Pulse Ox 97% on R/A; aj 15:42 BP 100 / 62; Pulse 87; Resp 15; Temp 99.0; Pulse Ox 99% on R/A; aj 11:54 Body Mass Index 34.96 (83.91 kg, 154.94 cm) aa5 ED Course: 11:38 Patient arrived in ED. mr 11:38 Out, [facility] is Private Physician. mr 11:54 Triage completed. aa5 11:54 Arm band placed on. aa5 12:28 [facility] snw 12:28 Javier Bautista MD is Attending Physician. snw 12:41 X-ray completed. Patient tolerated procedure well. Patient moved back from radiology. mh1 12:43 Chest Pa And Lat (2 Views) XRAY In Process Unspecified. EDMS 13:05 Urine collected: clean catch specimen, cloudy, georgette colored. jb1 13:25 Alanna Arenas, RN is Primary Nurse. aj 13:55 Patient has correct armband on for positive identification. aj 13:55 Initial lab(s) drawn, by me, sent to lab. Inserted saline lock: 20 gauge in right aj forearm, using aseptic technique. Blood collected. 15:42 No provider procedures requiring assistance completed. IV discontinued, intact, aj bleeding controlled, No redness/swelling at site. Pressure dressing applied. Administered Medications: 13:47 Drug: NS 0.9% 1000 ml Route: IV; Rate: 1 bolus; Site: right forearm; aj 15:44 Follow up: Response: No adverse reaction; IV Status: Completed infusion; IV Intake: aj 1000ml 13:47 Drug: Rocephin 1 grams Route: IV; Rate: calculated rate; Site: right forearm; aj 15:44 Follow up: Response: No adverse reaction; IV Status: Completed infusion; IV Intake: 10mlaj 13:47 Drug: fentaNYL (PF) 50 mcg Route: IVP; Site: right forearm; aj 15:44 Follow up: Response: Pain is decreased aj :47 Drug: Phenergan 6.25 mg Route: IVP; Site: right forearm; aj 15:45 Follow up: Response: Nausea is decreased : Drug: NS 0.9% 1000 ml Route: IV; Rate: 1 bolus; Site: right forearm; aj 15:45 Follow up: Response: No adverse reaction; IV Status: Completed infusion; IV Intake: aj 1000ml Intake: 15:44 IV: 1000ml; Total: 1000ml. aj 15:44 IV: 10ml; Total: 1010ml. aj 15:45 IV: 1000ml; Total: 2010ml. aj Outcome: 15:31 Discharge ordered by . buffy 15:42 Discharged to home ambulatory. aj 15:42 Condition: good 15:42 Discharge instructions given to patient, Instructed on discharge instructions, follow up and referral plans. medication usage, Demonstrated understanding of instructions, follow-up care, medications, Prescriptions given X 3. 15:46 Patient left the ED. aj Addendum: 04/17/2018 13:39 Addendum: Culture Results: Positive urine culture. Bacteria is resistant to, has i w intermediate sensitivity, or is not tested against prescribed antibiotics. Report given to LUIS for further evaluation and then to carding utility tender for follow up with patient. Phone call Attempt #1 pt did not answer, left voice mail with call back number. Signatures: Dispatcher [employer] Vital Records Yg Nelson jb1 Alanna Arenas RN RN aj Therrien, Shelly, DRAKEC STORE OPERATIONS SPECIALIST-Kimmy Rick Mary Devlin 1 Jodie Perez, Liz Almonte RN, RN RN aa5 Corrections: (The following items were deleted from the chart) 04/14 11:55 11:53 Acuity: SUSAN 4 aa5 aa5
--- NOTE | 2018-04-14 15:32 | EDPHYS ---
Physician Documentation [facility] Name: Kathia Alfaro Age: 43 yrs Sex: Female : 1975 Arrival Date: 04/14/2018 Time: 11:38 Bed 20 Private MD: Out, of [facility] [facility] ED Physician Javier Bautista HPI: 04/14 15:04 This 43 yrs old Female presents to ER via Ambulatory with complaints of Fever. snw 15:04 The patient reports fever, not measured (subjective). Onset: The symptoms/episode snw began/occurred suddenly, this morning. Modifying factors: there are no obvious modifying factors. Associated signs and symptoms: Pertinent positives: nausea, vomiting. Severity of symptoms: At their worst the symptoms were moderate severe in the emergency department the symptoms are unchanged. The patient has not experienced similar symptoms in the past. The patient has not recently seen a physician. 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 - Social history:: Smoking status: Patient/guardian denies using tobacco. - Ebola Screening: : No symptoms or risks identified at this time. ROS: 15:03 Constitutional: Negative for chills and weight loss, + fever Eyes: Negative for injury, snw pain, redness, and discharge, ENT: Negative for injury, pain, and discharge, Neck: Negative for injury, pain, and swelling, Cardiovascular: Negative for chest pain, palpitations, and edema, Respiratory: Negative for shortness of breath, cough, wheezing, and pleuritic chest pain, : Negative for injury, bleeding, discharge, and swelling, MS/Extremity: Negative for injury and deformity, Skin: Negative for injury, rash, and discoloration, Neuro: Negative for headache, weakness, numbness, tingling, and seizure. 15:03 Abdomen/GI: Positive for nausea, vomiting. 15:03 Back: Positive for pain at rest, pain with movement, of the lumbar area and mid back area. Exam: 15:03 Head/Face: Normocephalic, atraumatic. Eyes: Pupils equal round and reactive to light, snw extra-ocular motions intact. Lids and lashes normal. Conjunctiva and sclera are non-icteric and not injected. Cornea within normal limits. Periorbital areas with no swelling, redness, or edema. ENT: Nares patent. No nasal discharge, no septal abnormalities noted. Tympanic membranes are normal and external auditory canals are clear. Oropharynx with no redness, swelling, or masses, exudates, or evidence of obstruction, uvula midline. Mucous membranes moist. Neck: Trachea midline, no thyromegaly or masses palpated, and no cervical lymphadenopathy. Supple, full range of motion without nuchal rigidity, or vertebral point tenderness. No Meningismus. Chest/axilla: Normal chest wall appearance and motion. Nontender with no deformity. No lesions are appreciated. Cardiovascular: Regular rate and rhythm with a normal S1 and S2. No gallops, murmurs, or rubs. Normal PMI, no JVD. No pulse deficits. Respiratory: Lungs have equal breath sounds bilaterally, clear to auscultation and percussion. No rales, rhonchi or wheezes noted. No increased work of breathing, no retractions or nasal flaring. 15:03 Constitutional: The patient appears awake, anxious, obese, restless, uncomfortable. 15:03 Abdomen/GI: Inspection: obese Bowel sounds: active, Palpation: abdomen is soft and non-tender. 15:03 Back: pain, that is moderate, of the lumbar area, mid back area and left mid back, ROM is normal, normal spinal alignment noted, muscle spasm, is not present. Vital Signs: 11:54 BP 110 / 70; Pulse 124; Resp 18 S; Temp 100.7(O); Pulse Ox 96% on R/A; Weight 83.91 kg aa5 (R); Height 5 ft. 1 in. (154.94 cm) (R); Pain 8/10; 13:52 BP 98 / 57; Pulse 95; Resp 16; Pulse Ox 97% on R/A; aj 15:42 BP 100 / 62; Pulse 87; Resp 15; Temp 99.0; Pulse Ox 99% on R/A; aj 11:54 Body Mass Index 34.96 (83.91 kg, 154.94 cm) aa5 MDM: 13:09 Patient medically screened. snw 15:29 Data reviewed: vital signs, nurses notes, lab test result(s), radiologic studies. Data snw interpreted: Pulse oximetry: on room air is 97 %. Interpretation: normal. Counseling: I had a detailed discussion with the patient and/or guardian regarding: the historical points, exam findings, and any diagnostic results supporting the discharge/admit diagnosis, lab results, radiology results, the need for outpatient follow up, to return to the emergency department if symptoms worsen or persist or if there are any questions or concerns that arise at home. Response to treatment: the patient's condition has returned to base line, patient is well hydrated. and as a result, I will discharge patient, administer antibiotics. Special discussion: Based on the history and exam findings, there is no indication for further emergent testing or inpatient evaluation. I discussed with the patient/guardian the need to see the primary care provider for further evaluation of the symptoms. 04/14 12:17 Order name: Urine Culture [facility] 04/14 12:17 Order name: Urine Microscopic Only; Complete Time: 13:23 [facility] 04/14 13:06 Order name: Urine Dipstick--Ancillary (enter results); Complete Time: 13:24 04/14 13:06 Order name: Urine --Ancillary (enter results); Complete Time: 13:24 eb 04/14 13:17 Order name: Flu [facility] 04/14 13:17 Order name: CBC with Diff; Complete Time: 14:26 [facility] 04/14 12:17 Order name: Chest Pa And Lat (2 Views) XRAY; Complete Time: 13:05 [facility] 04/14 13:17 Order name: Blood Culture Adult (2) [facility] 04/14 13:17 Order name: Chem 7; Complete Time: 14:26 [facility] 04/14 12:17 Order name: Urine Test (obtain specimen); Complete Time: 13:14 [facility] 04/14 12:17 Order name: Urine Dipstick-Ancillary (obtain specimen); Complete Time: 13:14 snw Administered Medications: 13:47 Drug: NS 0.9% 1000 ml Route: IV; Rate: 1 bolus; Site: right forearm; aj 15:44 Follow up: Response: No adverse reaction; IV Status: Completed infusion; IV Intake: aj 1000ml 13:47 Drug: Rocephin 1 grams Route: IV; Rate: calculated rate; Site: right forearm; aj 15:44 Follow up: Response: No adverse reaction; IV Status: Completed infusion; IV Intake: 10mlaj 13:47 Drug: fentaNYL (PF) 50 mcg Route: IVP; Site: right forearm; aj 15:44 Follow up: Response: Pain is decreased aj :47 Drug: Phenergan 6.25 mg Route: IVP; Site: right forearm; aj 15:45 Follow up: Response: Nausea is decreased aj :47 Drug: NS 0.9% 1000 ml Route: IV; Rate: 1 bolus; Site: right forearm; aj 15:45 Follow up: Response: No adverse reaction; IV Status: Completed infusion; IV Intake: aj 1000ml Disposition: 17:11 Co-signature as Attending Physician, Javier Bautista MD I agree with the assessment and kdr plan of care. Disposition: 04/14/18 15:31 Discharged to Home. Impression: Urinary tract infection, site not specified, Fever, unspecified. - Condition is Stable. - Discharge Instructions: Back Pain, Adult, Fever, Adult, Pyelonephritis, Adult, Urinary Tract Infection, Adult, Rehydration, Adult. - Prescriptions for Augmentin 875- 125 mg Oral Tablet - take 1 tablet by ORAL route every 12 hours for 10 days; 20 tablet. Macrobid 100 mg Oral Capsule - take 1 capsule by ORAL route every 12 hours for 10 days; 20 capsule. promethazine 25 mg Oral Tablet - take 1 tablet by ORAL route every 6 hours As needed; 20 tablet. - Work release form, Medication Reconciliation Form, Thank You Letter, Antibiotic Education, Prescription Opioid Use form. - Follow up: Private Physician; When: 2 - 3 days; Reason: Recheck today's complaints, Continuance of care, Re-evaluation by your physician. Follow up: Emergency Department; When: As needed; Reason: Worsening of condition. Signatures: Dispatcher [employer] Alanna Flannery RN Javier Almeida MD MD kdr Therrien, Shelly, ANIKET-C NEUROLOGICAL SURGERY TEACHER-Liz Alberto RN RN aa5 Corrections: (The following items were deleted from the chart) 15:46 15:31 04/14/2018 15:31 Discharged to Home. Impression: Urinary tract infection, site aj not specified; Fever, unspecified. Condition is Stable. Forms are Medication Reconciliation Form, Thank You Letter, Antibiotic Education, Prescription Opioid Use. Follow up: Private Physician; When: 2 - 3 days; Reason: Recheck today's complaints, Continuance of care, Re-evaluation by your physician. Follow up: Emergency Department; When: As needed; Reason: Worsening of condition. snw
== END 2018-04-14 15:46 | disposition home or self-care (01) ==
LOC: ER 11:35
DX: N39.0 Urinary tract infection, site not specified (principal)
CPT/HCPCS: 36415; 71046; 80048; 81003; 81015; 81025; 85025; 87040; 87077; 87086; 87088; 87186; 87804; 96365; 96366; 96375; 99284; J0696; J2550; J3010; J7030

== ENCOUNTER 2019-10-21 07:03 | Emergency (ER) | payer OTHER ==
--- OUTSIDE RECORDS SUMMARY | 2019-10-21 07:06 | XMS REPORT ---
:1975 [facility] Address [address] [place] [address] Care Team Providers Name Role Phone Unavailable Unavailable Unavailable Problems This patient has no known problems. Allergies, Adverse Reactions, Alerts This patient has no known allergies or adverse reactions. Medications This patient has no known medications. Encounters Start End Encounter Admission Attending Care Care Encounter Date/Time Date/Time Type Type Clinicians Facility Department ID 2018-11-16 Inpatient [facility] [id number] 05:54:00
[2019-10-21] MEDS ORDERED: HYDROCODONE/APAP 10/325 TAB ONE (07:28)
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
[2019-10-21 08:59] VITALS: TEMP 98.2
[2019-10-21 09:29] VITALS: BP 98/65; O2SAT 97
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
== END 2019-10-21 08:53 | disposition home or self-care (01) ==
LOC: ER 07:03
DX: M54.9 Dorsalgia, unspecified (principal); V43.62XA Car passenger injured in collision with other type car in traffic accident, initial encounter
CPT/HCPCS: 72070; 99284